=== PATIENT | male | born 1955 | race Caucasian/White ===

== ENCOUNTER 2018-10-18 17:59 | Emergency (ER) | payer OTHER | END 2018-10-18 18:32 | disposition E | DRG 298 | LOC: ED 17:59 | PROC: 5A12012 Performance of Cardiac Output, Single, Manual (ICD-10-PCS; principal; 2018-10-18) | PROC: 0BH17EZ Insertion of Endotracheal Airway into Trachea, Via Natural or Artificial Opening (ICD-10-PCS; 2018-10-18) | DX: I46.9 Cardiac arrest, cause unspecified (principal); I10 Essential (primary) hypertension ==